=== PATIENT | female | born 1940 ===

== ENCOUNTER → 2018-07-17 | Outpatient (CLI) | payer OTHER ==
[~2018-07-17] MED LIST: ALBU90OI INH; ATOR20 PO; CHOL10002; LEVSOD75 PO; LISI20 PO; NITR.4SL SL; RIVASTIGMINE1 EAC1 TD; TOCO1000 PO
[2018-07-17 18:29] LABS: BASOPHILS ABSOLUTE AUTO 0.04 K/mm3 (0.00-0.23); BASOPHILS PERCENT AUTO 1 % (0-2); EOSINOPHILS ABSOLUTE AUTO 0.45 K/mm3 (0.00-0.68); EOSINOPHILS PERCENT AUTO 10 % (0-6); Hematocrit 38.3 % (33.0-51.0); Hemoglobin 12.4 g/dL (11.5-16.0); IMMATURE GRAN ABSOLUTE AUTO 0.01 K/mm3 (0.00-0.10); IMMATURE GRAN PERCENT AUTO 0 % (0-1); LYMPHOCYTES PERCENT AUTO 38 % (21-46); MONOCYTES ABSOLUTE AUTO 0.35 K/mm3 (0.16-1.47); MONOCYTES PERCENT AUTO 7 % (4-13); Mean Corpuscular HGB 31.2 pg (26.0-34.0); Mean Corpuscular HGB Conc 32.4 g/dL (31.5-36.5); Mean Corpuscular Volume 96 fL (80-100); Mean Platelet Volume 8.9 fL (9.1-12.4); NEUTROPHILS ABSOLUTE AUTO 2.05 K/mm3 (1.96-9.15); NEUTROPHILS PERCENT AUTO 44 % (41-73); Platelet Count 192 K/mm3 (150-400); RDW Coefficient Variation 12.7 % (11.7-14.2); RDW Standard Deviation 45.3 fL (35.1-46.3); Red Blood Cell Count 3.98 M/mm3 (3.80-5.20)
[2018-07-17 20:48] LABS: Alanine Aminotransfer (ALT/SGP 22 U/L (12-78); Albumin, Blood 3.7 g/dL (3.4-5.0); Albumin/Globulin Ratio 1.5 (0.8-1.8); Alk Phos 44 U/L (50-136); Anion Gap 6 mmol/L (6-16); Aspartate Aminotrans (AST/SGOT 18 U/L (12-37); Bilirubin, Total 0.6 mg/dL (0.1-1.0); Blood Urea Nitrogen 24 mg/dL (8-24); Bun/Creatinine Ratio 25.8 (12.0-20.0); CHOL/HDL RATIO 3.2; CO2, Blood 25 mmol/L (21-32); Calcium, Blood 8.3 mg/dL (8.5-10.1); Chloride, Blood 112 mmol/L (98-108); Cholesterol 195 mg/dL (50-200); Creatinine, Blood 0.93 mg/dL (0.40-1.00); Globulin, Blood 2.5 g/dL (2.2-4.0); Glomerular Filtration Rate >60 (60-); Glucose, Blood 82 mg/dL (70-99); HDL Cholesterol 61 mg/dL (>39); LDL/HDL RATIO 1.8; Low Density Lipoprotein Chol 109 mg/dL (0-110); Potassium, Blood 4.2 mmol/L (3.5-5.5); Sodium, Blood 143 mmol/L (136-145); Total Protein, Blood 6.2 g/dL (6.4-8.2); Triglycerides 126 mg/dL (30-160); Very Low Density Lipoprot Chol 25 mg/dL (6-32)
== END ==
LOC: LAB SHORT 18:06
PROVIDERS: Nurse Practitioner Adult Health
DX: E03.9 Hypothyroidism, unspecified (principal); E78.5 Hyperlipidemia, unspecified; I10 Essential (primary) hypertension; J44.9 Chronic obstructive pulmonary disease, unspecified; N28.9 Disorder of kidney and ureter, unspecified
CPT/HCPCS: 80053; 80061; 84439; 84443; 85025

== ENCOUNTER 2018-12-10 13:49 | Emergency (ER) | payer OTHER ==
[~2018-12-10] VITALS: Ht 160 cm; Wt 68.0 kg
== END 2018-12-10 14:41 | disposition home or self-care (01) ==
LOC: ER 13:49
DX: S82.64XA Nondisplaced fracture of lateral malleolus of right fibula, initial encounter for closed fracture (principal); X50.9XXA Other and unspecified overexertion or strenuous movements or postures, initial encounter; Z88.5 Allergy status to narcotic agent; Z79.899 Other long term (current) drug therapy; E78.5 Hyperlipidemia, unspecified; F03.90 Unspecified dementia, unspecified severity, without behavioral disturbance, psychotic disturbance, mood disturbance, and anxiety; E03.9 Hypothyroidism, unspecified; J44.9 Chronic obstructive pulmonary disease, unspecified; Z87.891 Personal history of nicotine dependence
CPT/HCPCS: 29515; 73610; 99283-25

== ENCOUNTER 2018-12-28 20:03 | Emergency (ER) | payer OTHER ==
[~2018-12-28] VITALS: Ht 160 cm; Wt 66.2 kg
[2018-12-28 21:34] LABS: BASOPHILS ABSOLUTE AUTO 0.02 K/mm3 (0.00-0.23); BASOPHILS PERCENT AUTO 0 % (0-2); EOSINOPHILS ABSOLUTE AUTO 0.17 K/mm3 (0.00-0.68); EOSINOPHILS PERCENT AUTO 2 % (0-6); Hematocrit 40.5 % (33.0-51.0); Hemoglobin 13.4 g/dL (11.5-16.0); IMMATURE GRAN ABSOLUTE AUTO 0.02 K/mm3 (0.00-0.10); IMMATURE GRAN PERCENT AUTO 0 % (0-1); LYMPHOCYTES PERCENT AUTO 24 % (21-46); MONOCYTES ABSOLUTE AUTO 0.57 K/mm3 (0.16-1.47); MONOCYTES PERCENT AUTO 7 % (4-13); Mean Corpuscular HGB Conc 33.1 g/dL (31.5-36.5); Mean Corpuscular Volume 97 fL (80-100); Mean Platelet Volume 8.5 fL (9.1-12.4); NEUTROPHILS ABSOLUTE AUTO 5.69 K/mm3 (1.96-9.15); NEUTROPHILS PERCENT AUTO 67 % (41-73); Platelet Count 207 K/mm3 (150-400); RDW Coefficient Variation 12.5 % (11.7-14.2); RDW Standard Deviation 44.8 fL (35.1-46.3); Red Blood Cell Count 4.19 M/mm3 (3.80-5.20); White Blood Cell Count 8.47 K/mm3 (4.00-11.30)
[2018-12-28 21:58] LABS: Alanine Aminotransfer (ALT/SGP 20 U/L (12-78); Albumin, Blood 4.1 g/dL (3.4-5.0); Albumin/Globulin Ratio 1.5 (0.8-1.8); Alk Phos 63 U/L (50-136); Anion Gap 9 mmol/L (6-16); Aspartate Aminotrans (AST/SGOT 14 U/L (12-37); Bilirubin, Total 0.3 mg/dL (0.1-1.0); Blood Urea Nitrogen 21 mg/dL (8-24); Bun/Creatinine Ratio 22.1 (12.0-20.0); CO2, Blood 21 mmol/L (21-32); Calcium, Blood 8.7 mg/dL (8.5-10.1); Chloride, Blood 112 mmol/L (98-108); Creatinine, Blood 0.95 mg/dL (0.40-1.00); Globulin, Blood 2.7 g/dL (2.2-4.0); Glomerular Filtration Rate >60 (60-); Glucose, Blood 100 mg/dL (70-99); Potassium, Blood 3.7 mmol/L (3.5-5.5); Sodium, Blood 142 mmol/L (136-145); Total Protein, Blood 6.8 g/dL (6.4-8.2); Troponin I 0.025 ng/mL (0.000-0.040)
== END 2018-12-28 22:46 | disposition home or self-care (01) ==
LOC: ER 20:03
PROVIDERS: Physician Assistant
DX: R07.9 Chest pain, unspecified (principal); I10 Essential (primary) hypertension; F03.90 Unspecified dementia, unspecified severity, without behavioral disturbance, psychotic disturbance, mood disturbance, and anxiety; Z88.5 Allergy status to narcotic agent; Z79.899 Other long term (current) drug therapy
CPT/HCPCS: 36415; 80053; 84484; 85025; 93005; 93010; 99285-25

== ENCOUNTER → 2019-03-19 | Outpatient (CLI) | payer OTHER | END | disposition home or self-care (01) | LOC: LAB 17:26 → LAB SHORT 17:26 | DX: E03.9 Hypothyroidism, unspecified (principal) | CPT/HCPCS: 84443 ==

== ENCOUNTER 2019-05-12 08:21 | Day surgery (SDC) | payer OTHER ==
[~2019-05-12 08:21] MED LIST changes: -ATOR20 PO; -CHOL10002; +CHOL10002 PO; +EXELON1 EACH TD; +Lipitor20 MG PO; -RIVASTIGMINE1 EAC1 TD
--- NOTE | 2019-05-12 12:53 | NUR ---
PATEINT REMAINS WITHOUT SOB, CHEST PAIN. DISCHARGE INSTRUCTIONS GIVEN TO PATIENT ALONG WITH SPOUSE. DR. ELLINGTON IN TO MATY WITH PATINET REGARDING FOLLOW UP CARE AND CHEST XRAY TOMARROW TO EVALUATE PNEUMO. Discharged via wheelchair to private car for ride home. Patient up to Ambulate independently. Gait steady.
== END 2019-05-12 22:42 | disposition home or self-care (01) ==
LOC: CT 08:21
PROVIDERS: Radiology Diagnostic Radiology
PROC: 0BBC3ZX Excision of Right Upper Lung Lobe, Percutaneous Approach, Diagnostic (ICD-10-PCS; principal; 2019-05-12 10:00)
DX: C34.11 Malignant neoplasm of upper lobe, right bronchus or lung (principal); C77.9 Secondary and unspecified malignant neoplasm of lymph node, unspecified; J44.9 Chronic obstructive pulmonary disease, unspecified; I10 Essential (primary) hypertension; E78.5 Hyperlipidemia, unspecified; E03.9 Hypothyroidism, unspecified; F03.90 Unspecified dementia, unspecified severity, without behavioral disturbance, psychotic disturbance, mood disturbance, and anxiety; Z87.891 Personal history of nicotine dependence; Z88.8 Allergy status to other drugs, medicaments and biological substances; Z79.899 Other long term (current) drug therapy
CPT/HCPCS: 32405; 71045; 77012; 88305; 88341; 88342

== ENCOUNTER 2019-05-14 14:37 | Observation (INO) | payer OTHER ==
[~2019-05-14] VITALS: Ht 170.2 cm; Wt 81.7 kg
[2019-05-14] MEDS ORDERED: [UNRECOGNIZED DRUG - CODE] TD (17:22)
[2019-05-14] MEDS ORDERED: ANORO ELLIPTA1 EACH INH (19:00)
[2019-05-14] MEDS ORDERED: QVAR REDIHALE10.6 GM INH (19:01)
--- NOTE | 2019-05-14 19:22 | NUR ---
SHIFT SUMMARY DEDE ARRIVED AT 645PM FROM ED. SBA FROM STRETCHER TO BED. STATES THAT SHE IS HUNGRY, TRAY ORDERED FOR HER. CHEST TUBE C/D/I. CALL LIGHT IN REACH, REPORT GIVEN TO TRIM INSTALLER NURSE
--- NOTE | 2019-05-14 23:48 | NUR ---
PT C/O INABILITY SLEEP AND REQUESTING MEDICATION. Daylin CAMERON NP CALLED WITH ORDERS RECEIVED FOR MELATONIN 5MG X 1 NOW.
--- NOTE | 2019-05-15 04:18 | NUR ---
SHIFT SUMMARY: 79 Y/O FEMALE HAD RESTLESS NIGHT AT TIMES, C/O INABILITY TO SLEEP EVEN AFTER MELATONIN 5MG PO GIVEN, PARANOID AT TIMES AND VOICED SHE DID NOT WANT ANY STRONG MEDICATIONS SHE FELT THEY MIGHT NOT BE GOOD FOR HER. PT IS ALERT TO PERSON ONLY, ABLE FOLLOW SIMPLE VERBAL COMMANDS, CHEST TUBE RIGHT UPPER CHEST WITHOUT DRAINAGE, NO DYSPNEA OR CHEST PAIN NOTED, ABLE AMBULATE BATHROOM AND BACK X 1 STANDBY ASSIST WITH GAIT SLOW AND STEADY, BED ALARM APPLIED, BED LOW POSITION, CALL LIGHT AT SIDE.
[2019-05-15 04:44] LABS: BASOPHILS ABSOLUTE AUTO 0.01 K/mm3 (0.00-0.23); BASOPHILS PERCENT AUTO 0 % (0-2); EOSINOPHILS ABSOLUTE AUTO 0.39 K/mm3 (0.00-0.68); EOSINOPHILS PERCENT AUTO 7 % (0-6); Hemoglobin 12.5 g/dL (11.5-16.0); IMMATURE GRAN ABSOLUTE AUTO 0.02 K/mm3 (0.00-0.10); IMMATURE GRAN PERCENT AUTO 0 % (0-1); LYMPHOCYTES ABSOLUTE AUTO 1.98 K/mm3 (0.84-5.20); LYMPHOCYTES PERCENT AUTO 36 % (21-46); MONOCYTES ABSOLUTE AUTO 0.48 K/mm3 (0.16-1.47); MONOCYTES PERCENT AUTO 9 % (4-13); Mean Corpuscular HGB 31.7 pg (26.0-34.0); Mean Corpuscular HGB Conc 33.8 g/dL (31.5-36.5); Mean Corpuscular Volume 94 fL (80-100); Mean Platelet Volume 8.7 fL (9.1-12.4); NEUTROPHILS ABSOLUTE AUTO 2.57 K/mm3 (1.96-9.15); NEUTROPHILS PERCENT AUTO 47 % (41-73); Platelet Count 189 K/mm3 (150-400); RDW Coefficient Variation 12.6 % (11.7-14.2); RDW Standard Deviation 43.4 fL (35.1-46.3); Red Blood Cell Count 3.94 M/mm3 (3.80-5.20); White Blood Cell Count 5.45 K/mm3 (4.00-11.30)
[2019-05-15 05:10] LABS: Albumin, Blood 3.7 g/dL (3.4-5.0); Albumin/Globulin Ratio 1.5 (0.8-1.8); Bilirubin, Total 0.5 mg/dL (0.1-1.0); Bun/Creatinine Ratio 21.2 (12.0-20.0); Calcium, Blood 8.3 mg/dL (8.5-10.1); Creatinine, Blood 1.04 mg/dL (0.40-1.00); Globulin, Blood 2.5 g/dL (2.2-4.0); Potassium, Blood 3.7 mmol/L (3.5-5.5); Total Protein, Blood 6.2 g/dL (6.4-8.2)
[2019-05-15] MEDS ORDERED: ALBU90OI61 INH (13:40)
--- NOTE | 2019-05-15 14:38 | NUR ---
DISCHARGE SUMMARY DEDE HAD HER CHEST TUBE REMOVED BY DR WEN. HER AND HER ARE VERY EAGER TO LEAVE. WALKING AROUND WITHOUT PAIN OR PROBLEMS POST REMOVAL OF CHEST TUBE. PIV REMOVED, MEDS FAXED TO PHARMACY, PAPERWORK GONE OVER. DENIED PAIN. TOOK MEDS PRESCRIBED. LEFT WITH TO GO HOME
== END 2019-05-15 14:02 | disposition home or self-care (01) ==
LOC: RAD 14:37 → ER 14:37 → MEDS 14:38 → RAD FUT 11-12 08:00 → RAD 11-12 08:00
PROVIDERS: ADMIT Internal Medicine
DX: J93.9 Pneumothorax, unspecified (principal); C34.90 Malignant neoplasm of unspecified part of unspecified bronchus or lung; I10 Essential (primary) hypertension; J44.9 Chronic obstructive pulmonary disease, unspecified; E03.9 Hypothyroidism, unspecified; E78.00 Pure hypercholesterolemia, unspecified; F03.90 Unspecified dementia, unspecified severity, without behavioral disturbance, psychotic disturbance, mood disturbance, and anxiety; Z87.891 Personal history of nicotine dependence; Z88.8 Allergy status to other drugs, medicaments and biological substances; Z79.899 Other long term (current) drug therapy
CPT/HCPCS: 32557; 36415; 71045; 71046; 80053; 85025; 93005; 93010; 99285; A9270; G0378

== ENCOUNTER 2019-05-23 14:19 | Emergency (ER) | payer OTHER ==
[~2019-05-23] VITALS: Ht 162.6 cm; Wt 63.5 kg
[~2019-05-23 14:19] MED LIST changes: +ALBU90OI61 INH; +ANORO ELLIPTA1 EACH INH; +QVAR REDIHALE10.6 GM INH; +[UNRECOGNIZED DRUG - CODE] TD
[2019-05-23 15:05] LABS: BASOPHILS ABSOLUTE AUTO 0.02 K/mm3 (0.00-0.23); BASOPHILS PERCENT AUTO 0 % (0-2); EOSINOPHILS ABSOLUTE AUTO 0.24 K/mm3 (0.00-0.68); EOSINOPHILS PERCENT AUTO 4 % (0-6); Hematocrit 38.3 % (33.0-51.0); Hemoglobin 12.9 g/dL (11.5-16.0); IMMATURE GRAN ABSOLUTE AUTO 0.01 K/mm3 (0.00-0.10); IMMATURE GRAN PERCENT AUTO 0 % (0-1); LYMPHOCYTES ABSOLUTE AUTO 2.14 K/mm3 (0.84-5.20); LYMPHOCYTES PERCENT AUTO 32 % (21-46); MONOCYTES ABSOLUTE AUTO 0.57 K/mm3 (0.16-1.47); MONOCYTES PERCENT AUTO 9 % (4-13); Mean Corpuscular HGB 32.4 pg (26.0-34.0); Mean Corpuscular HGB Conc 33.7 g/dL (31.5-36.5); Mean Corpuscular Volume 96 fL (80-100); Mean Platelet Volume 8.6 fL (9.1-12.4); NEUTROPHILS ABSOLUTE AUTO 3.69 K/mm3 (1.96-9.15); NEUTROPHILS PERCENT AUTO 55 % (41-73); Platelet Count 187 K/mm3 (150-400); RDW Coefficient Variation 12.7 % (11.7-14.2); RDW Standard Deviation 45.1 fL (35.1-46.3); Red Blood Cell Count 3.98 M/mm3 (3.80-5.20); White Blood Cell Count 6.67 K/mm3 (4.00-11.30)
[2019-05-23] MEDS ORDERED: Prinivil10 MG PO (15:26)
[2019-05-23 15:39] LABS: Alanine Aminotransfer (ALT/SGP 22 U/L (12-78); Albumin/Globulin Ratio 1.5 (0.8-1.8); Alk Phos 43 U/L (50-136); Anion Gap 7 mmol/L (6-16); Aspartate Aminotrans (AST/SGOT 14 U/L (12-37); Bilirubin, Total 0.5 mg/dL (0.1-1.0); Blood Urea Nitrogen 24 mg/dL (8-24); Bun/Creatinine Ratio 24.3 (12.0-20.0); CO2, Blood 22 mmol/L (21-32); Calcium, Blood 8.6 mg/dL (8.5-10.1); Chloride, Blood 109 mmol/L (98-108); Creatinine, Blood 0.99 mg/dL (0.40-1.00); Globulin, Blood 2.6 g/dL (2.2-4.0); Glomerular Filtration Rate 58 (60-); Glucose, Blood 91 mg/dL (70-99); Potassium, Blood 4.4 mmol/L (3.5-5.5); Sodium, Blood 138 mmol/L (136-145); Total Protein, Blood 6.6 g/dL (6.4-8.2); Troponin I <0.015 ng/mL (0.000-0.040)
[2019-05-23 16:32] LABS: Source, Urine Clean Catch
[2019-05-23 16:36] LABS: Bilirubin, Urine Neg (Neg); Blood, Urine Neg (Neg); Glucose Qualitative, Urine Neg (Neg); Ketones, Urine 1+ (Neg); Leukocyte Esterase, Urine 2+ (Neg); Nitrite, Urine Neg (Neg); Protein, Urine Neg (Neg); Specific Gravity, Urine 1.005 (1.003-1.022); Urobilinogen, Urine NORM (Normal)
[2019-05-23 16:48] LABS: Appearance, Urine Clear (Clear); Color, Urine Yellow (P-Yellow)
[2019-05-23 16:50] LABS: Bacteria Not Seen /hpf; Red Blood Cells, Urine 0-2 /hpf (0-2); Squamous Epithelial Cells Not Seen /hpf (Few); White Blood Cells, Urine 0-2 /hpf (0-5)
[2019-05-23] MEDS ORDERED: Motion Sickness25 M1 PO (18:01)
== END 2019-05-23 18:21 | disposition home or self-care (01) ==
LOC: ER 14:19
PROVIDERS: Emergency Medicine
DX: R07.89 Other chest pain (principal); R42 Dizziness and giddiness; I10 Essential (primary) hypertension; F03.90 Unspecified dementia, unspecified severity, without behavioral disturbance, psychotic disturbance, mood disturbance, and anxiety; Z85.118 Personal history of other malignant neoplasm of bronchus and lung; Z88.5 Allergy status to narcotic agent; Z79.51 Long term (current) use of inhaled steroids; Z79.890 Hormone replacement therapy; Z79.899 Other long term (current) drug therapy; Z87.891 Personal history of nicotine dependence
CPT/HCPCS: 36415; 70450; 71046; 80053; 81001; 84484; 85025; 87086; 93005; 93010; 99285-25

== ENCOUNTER → 2019-08-19 | Outpatient (CLI) | payer OTHER ==
[~2019-08-19] MED LIST changes: +Motion Sickness25 M1 PO; +Prinivil10 MG PO
[2019-08-19 20:45] LABS: CHOL/HDL RATIO 2.8; Cholesterol 188 mg/dL (50-200); HDL Cholesterol 68 mg/dL (>39); LDL/HDL RATIO 1.3; Low Density Lipoprotein Chol 89 mg/dL (0-110); Triglycerides 156 mg/dL (30-160); Very Low Density Lipoprot Chol 31 mg/dL (6-32)
[2019-08-19 20:49] LABS: Thyroid Stimulating Hormone 0.287 uIU/mL (0.360-4.800)
== END ==
LOC: LAB 18:15 → LAB SHORT 18:15
PROVIDERS: Nurse Practitioner Family
DX: E78.5 Hyperlipidemia, unspecified (principal); E03.9 Hypothyroidism, unspecified
CPT/HCPCS: 80061; 84443

== ENCOUNTER → 2019-12-08 | Outpatient (CLI) | payer OTHER ==
[~2019-12-08] MED LIST changes: +ALBU2.5V5 INH
[2019-12-08 18:08] LABS: Very Low Density Lipoprot Chol 30 mg/dL (6-32)
[2019-12-08 18:17] LABS: CHOL/HDL RATIO 3.5; Cholesterol 223 mg/dL (50-200); HDL Cholesterol 63 mg/dL (>39); LDL Direct Measurement 135 mg/dL (0-130); LDL/HDL RATIO 2.1; Low Density Lipoprotein Chol 130 mg/dL (0-110); Triglycerides 151 mg/dL (30-160)
== END | disposition home or self-care (01) ==
LOC: LAB SHORT 16:16 → LAB 16:16
PROVIDERS: Nurse Practitioner Family
DX: E03.9 Hypothyroidism, unspecified (principal); E78.5 Hyperlipidemia, unspecified
CPT/HCPCS: 80061; 83721; 84443

== ENCOUNTER → 2020-03-08 | Outpatient (CLI) | payer OTHER | END | disposition home or self-care (01) | LOC: LAB 17:29 → LAB SHORT 17:29 | DX: E03.9 Hypothyroidism, unspecified (principal) | CPT/HCPCS: 84443 ==

== ENCOUNTER → 2020-05-02 | Outpatient (CLI) | payer OTHER | END | disposition home or self-care (01) | LOC: LAB 16:35 → LAB SHORT 16:35 | DX: E03.9 Hypothyroidism, unspecified (principal) | CPT/HCPCS: 84443 ==

== ENCOUNTER → 2020-07-20 | Outpatient (CLI) | payer OTHER ==
[2020-07-20 20:21] LABS: Free Thyroxine 1.33 ng/dL (0.70-1.60)
[2020-07-20 20:23] LABS: Thyroid Stimulating Hormone 1.62 uIU/mL (0.360-4.800)
== END ==
LOC: LAB 17:42 → LAB SHORT 17:42
PROVIDERS: Nurse Practitioner Family
DX: E03.9 Hypothyroidism, unspecified (principal)
CPT/HCPCS: 84439; 84443

== ENCOUNTER → 2020-09-06 | Outpatient (CLI) | payer OTHER ==
[2020-09-06 17:53] LABS: CHOL/HDL RATIO 3.3; Cholesterol 436 mg/dL (50-200); HDL Cholesterol 131 mg/dL (>39); Low Density Lipoprotein Chol 266 mg/dL (0-110); Triglycerides 197 mg/dL (30-160); Very Low Density Lipoprot Chol 39 mg/dL (6-32)
[2020-09-08 08:47] LABS: Free Thyroxine 0.22 ng/dL (0.70-1.60)
== END | disposition home or self-care (01) ==
LOC: LAB SHORT 16:11 → LAB 16:11
PROVIDERS: Nurse Practitioner Family
DX: E78.2 Mixed hyperlipidemia (principal); E03.9 Hypothyroidism, unspecified
CPT/HCPCS: 80061; 84439; 84443

== ENCOUNTER → 2020-09-28 | Outpatient (CLI) | payer OTHER ==
[2020-09-28 20:25] LABS: CHOL/HDL RATIO 2.4; Cholesterol 348 mg/dL (50-200); Free Thyroxine 0.26 ng/dL (0.70-1.60); HDL Cholesterol 146 mg/dL (>39); Low Density Lipoprotein Chol 146 mg/dL (0-110); Triglycerides 280 mg/dL (30-160); Very Low Density Lipoprot Chol 56 mg/dL (6-32)
== END | disposition home or self-care (01) ==
LOC: LAB 16:42
PROVIDERS: Nurse Practitioner Family
DX: E78.5 Hyperlipidemia, unspecified (principal); E03.9 Hypothyroidism, unspecified
CPT/HCPCS: 80061; 84439; 84443

== ENCOUNTER → 2021-02-02 | Outpatient (CLI) | payer OTHER | END | disposition home or self-care (01) | LOC: LAB SHORT 16:34 → OLS 16:34 | DX: C34.90 Malignant neoplasm of unspecified part of unspecified bronchus or lung (principal); E55.9 Vitamin D deficiency, unspecified; E78.2 Mixed hyperlipidemia; E03.9 Hypothyroidism, unspecified; I10 Essential (primary) hypertension | CPT/HCPCS: 80053; 80061; 82306; 84439; 84443; 85025 ==

== ENCOUNTER → 2021-03-16 | Outpatient (CLI) | payer OTHER | END | disposition home or self-care (01) | LOC: LAB 17:23 → LAB SHORT 17:23 | DX: E03.9 Hypothyroidism, unspecified (principal) | CPT/HCPCS: 84443 ==

== ENCOUNTER → 2021-05-02 | Outpatient (CLI) | payer OTHER ==
[2021-05-02 18:53] LABS: Free Thyroxine 1.37 ng/dL (0.70-1.60)
[2021-05-02 18:57] LABS: Thyroid Stimulating Hormone 4.39 uIU/mL (0.360-4.800)
== END | disposition home or self-care (01) ==
LOC: LAB 10:38 → LAB SHORT 10:38
PROVIDERS: Nurse Practitioner Family
DX: E03.9 Hypothyroidism, unspecified (principal)
CPT/HCPCS: 84439; 84443; 84481